=== PATIENT | female | born 1935 | race Caucasian/White ===

== ENCOUNTER 2021-02-13 05:40 | Inpatient (IN) | payer MEDICARE ==
[2021-02-11 14:33] LABS: ALANINE AMINOTRANSFERASE 19 U/L (12-78); ALBUMIN 3.7 g/dL (3.4-5.0); ANION GAP 8 mmol/L (5-15); CALCIUM 9.3 mg/dL (8.5-10.1); CHLORIDE 108 mmol/L (98-107); CREATININE 0.67 mg/dL (0.55-1.02)
[2021-02-11 14:35] LABS: ALKALINE PHOSPHATASE 101 U/L (45-117); BILIRUBIN,TOTAL 0.5 mg/dL (0.2-1.0); TOTAL PROTEIN 7.4 g/dL (6.4-8.2)
[~2021-02-13] VITALS: Ht 157.5 cm; Wt 81.5 kg
[~2021-02-13 05:40] MED LIST: APIX5TAB PO; CRAN1CAP12 PO; D-MA500C PO; DILT60CA PO; L.AC1CAP6 PO; LOSA25TA25 PO; Magnesium PO; OMEP20TA62 PO; PREG75CA PO; TRAM50TA2 PO
[2021-02-13] MEDS ORDERED: CHLORHEXIDINE 15 ML UDC PO ONE (06:30)
[2021-02-13] MEDS: LACTATED RINGERS 1,000 ML IV SCH ×4 (06:48→18:33)
[2021-02-13] MEDS ORDERED: BUPIVACAINE/PF 0.5% ONE (06:51)
[2021-02-13] MEDS ORDERED: EPINEPHRINE 1 MG/ML, 1ML ONE (06:51)
[2021-02-13] MEDS ORDERED: FENTANYL PF 250 MCG/5ML ONE (07:15)
[2021-02-13] MEDS ORDERED: DEXAMETHASONE 4 MG/ML, 1ML ONE (07:31)
[2021-02-13] MEDS ORDERED: EPHEDRINE 50 MG/ML, 1ML ONE (07:31)
[2021-02-13] MEDS ORDERED: BUPIVACAINE/PF-EPI 0.5% 1:200K INFIL ONE (07:46)
[2021-02-13] MEDS ORDERED: HYDROmorphone 1 MG/ML, 1ML INJ IVPush PRN (08:00)
[2021-02-13] MEDS ORDERED: ALBUTEROL SULFATE 2.5 MG/3 ML NPPB PRN (08:00)
[2021-02-13] MEDS ORDERED: LABETALOL 5MG/ML, 20ML IV PRN (08:00)
[2021-02-13] MEDS ORDERED: MEPERIDINE/PF 25MG/0.5ML IVPush PRN (08:00)
[2021-02-13] MEDS ORDERED: OXYcodone 5 MG/5 ML ORAL.SOL UDC PO PRN (08:00)
[2021-02-13] MEDS ORDERED: MIDAZOLAM 1 MG/ML, 2ML IV PRN (08:00)
[2021-02-13] MEDS ORDERED: ACETAMINOPHEN 325 MG TABLET PO PRN (08:00)
[2021-02-13] MEDS ORDERED: PROMETHAZINE 25 MG/ML, 1ML IVPush PRN (08:00)
[2021-02-13] MEDS ORDERED: METHOCARBAMOL 1,000 MG in DEXTROSE 5% 100 ML IV PRN (08:00)
[2021-02-13] MEDS ORDERED: GLYCOPYRROLATE 0.2MG/1ML, 5ML ONE (08:15)
[2021-02-13] MEDS ORDERED: PROPOFOL 10 MG/ML, 20ML ONE (08:15)
[2021-02-13] MEDS ORDERED: ONDANSETRON 2MG/ML, 2ML ONE (08:15)
[2021-02-13] MEDS ORDERED: CEFAZOLIN 1,000 MG ONE (08:15)
[2021-02-13] MEDS ORDERED: NEOSTIGMINE 1 MG/ML, 10ML ONE (08:15)
[2021-02-13] MEDS ORDERED: ROCURONIUM 10MG/ML,5ML ONE (08:15)
[2021-02-13] MEDS ORDERED: LIDOCAINE-MPF 2% ,5ML ONE (08:20)
[2021-02-13] MEDS ORDERED: SUGAMMADEX 200 MG/2 ML IVPush ONE ×2 (08:47)
[2021-02-13] MEDS ORDERED: PROMETHAZINE 25 MG/ML, 1ML IM PRN (09:00)
[2021-02-13] MEDS ORDERED: ENALAPRILAT 1.25 MG/ML, 2ML IV PRN (09:00)
[2021-02-13] MEDS ORDERED: HYDROcodone/APAP 7.5-325MG/15ML UDC PO PRN (09:00)
[2021-02-13] MEDS ORDERED: PROMETHAZINE 12.5 MG SUPP PR PRN (09:00)
[2021-02-13] MEDS ORDERED: hydrALAzine 20 MG/ML, 1ML IV PRN (09:00)
[2021-02-13] MEDS ORDERED: ONDANSETRON 2MG/ML, 2ML IVPush PRN (09:00)
[2021-02-13] MEDS ORDERED: morphine SULFATE 10 MG/ML, 1ML IV PRN (09:00)
[2021-02-13] MEDS ORDERED: FENTANYL PF 100 MCG/2ML ONE ×2 (09:04→11:31)
[2021-02-13] MEDS: FENTANYL PF 100 MCG/2ML IV PRN ×4 (09:10→09:30)
[2021-02-13] MEDS ORDERED: HYDR15SO3 PO (09:30)
[2021-02-13 12:22] LABS: ALBUMIN 3.3 g/dL (3.4-5.0); ANION GAP 6 mmol/L (5-15); CALCIUM 8.4 mg/dL (8.5-10.1); CHLORIDE 110 mmol/L (98-107)
[2021-02-13 12:31] LABS: ALANINE AMINOTRANSFERASE 34 U/L (12-78); ALKALINE PHOSPHATASE 100 U/L (45-117); BILIRUBIN,TOTAL 0.3 mg/dL (0.2-1.0); CREATININE 0.71 mg/dL (0.55-1.02); TOTAL PROTEIN 7.1 g/dL (6.4-8.2); TROPONIN I < 0.015 ng/mL (0.000-0.045)
[2021-02-13 14:00] VITALS: BP 135/79
[2021-02-13] MEDS ORDERED: POTASSIUM CHLORIDE 40 MEQ in SODIUM CHLORIDE 0.9% 500 ML IV ONE (15:00)
[2021-02-13] MEDS: DILTIAZEM 60 MG CAP.ER.12H PO SCH (15:54)
[2021-02-13] MEDS: FAMOTIDINE 20 MG/2 ML IV SCH (15:55)
[2021-02-13] MEDS: PREGABALIN 75 MG CAPSULE PO SCH (15:55)
[2021-02-13 17:43] LABS: BASOPHILS % (AUTO) 0 % (0-1); EOSINOPHILS % (AUTO) 0 % (1-7); LYMPHOCYTES % (AUTO) 3 % (22-44); MEAN CORPUSCULAR HEMOGLOBIN 26.3 pg (27.0-34.8); MEAN CORPUSCULAR HGB CONC 32.5 g/dL (32.4-35.8); MEAN PLATELET VOLUME 7.9 fL (7.4-10.4); MONOCYTES % (AUTO) 2 % (2-9); NEUTROPHILS % (AUTO) 95 % (42-75); PLATELET COUNT 161 x10^3/uL (130-400); RED BLOOD COUNT 4.94 x10^6/uL (3.82-5.3); RED CELL DISTRIBUTION WIDTH 17.2 % (9.6-15.2)
[2021-02-13 17:57] LABS: TROPONIN I < 0.015 ng/mL (0.000-0.045)
[2021-02-13 18:43] VITALS: BP 131/78
[2021-02-13] MEDS ORDERED: NS + 40MEQ KCL 1,000 ML IV SCH (19:00)
[2021-02-14 01:38] VITALS: BP 135/82
[2021-02-14 04:31] VITALS: BP 130/74
[2021-02-14] MEDS: PREGABALIN 75 MG CAPSULE PO SCH ×3 (04:36→20:24)
[2021-02-14] MEDS: DILTIAZEM 60 MG CAP.ER.12H PO SCH ×3 (04:36→20:25)
[2021-02-14] MEDS: FAMOTIDINE 20 MG/2 ML IV SCH (04:38)
[2021-02-14] MEDS: LACTATED RINGERS 1,000 ML IV SCH (05:00)
[2021-02-14 08:19] VITALS: BP 131/73
[2021-02-14] MEDS: LOSARTAN 25MG TABLET PO SCH ×2 (08:21→20:24)
[2021-02-14] MEDS: ENOXAPARIN 40 MG/0.4 ML SQ SCH (08:22)
[2021-02-14] MEDS ORDERED: PREGABALIN 75 MG CAPSULE PO SCH (09:00)
[2021-02-14 10:11] LABS: ANION GAP 4 mmol/L (5-15); CALCIUM 7.9 mg/dL (8.5-10.1); CHLORIDE 111 mmol/L (98-107)
[2021-02-14 10:13] LABS: CREATININE 0.68 mg/dL (0.55-1.02)
[2021-02-14 12:35] VITALS: BP 128/77
[2021-02-14 18:30] VITALS: BP 123/71
[2021-02-14 20:22] VITALS: BP 128/75
[2021-02-15 00:43] VITALS: BP 135/76
[2021-02-15 08:01] VITALS: BP 127/74
[2021-02-15] MEDS: ENOXAPARIN 40 MG/0.4 ML SQ SCH (08:39)
[2021-02-15] MEDS: DILTIAZEM 60 MG CAP.ER.12H PO SCH (08:40)
[2021-02-15] MEDS: PREGABALIN 75 MG CAPSULE PO SCH (08:40)
[2021-02-15] MEDS: LOSARTAN 25MG TABLET PO SCH (08:40)
[2021-02-15] MEDS ORDERED: FAMOTIDINE 20 MG/2 ML IV SCH (09:00)
[2021-02-15 13:55] VITALS: BP 134/79
== END 2021-02-15 18:43 | disposition home or self-care (01) | DRG 327 ==
LOC: OUT 05:40 → ORIP 08:59 → OBSVTOIN 08:59 → 5SO 13:31
PROVIDERS: ADMIT Thoracic Surgery (Cardiothoracic Vascular Surgery); ATTEND Thoracic Surgery (Cardiothoracic Vascular Surgery)
PROC: 0DV44ZZ Restriction of Esophagogastric Junction, Percutaneous Endoscopic Approach (ICD-10-PCS; 2021-02-13)
PROC: 0BUT4JZ Supplement Diaphragm with Synthetic Substitute, Percutaneous Endoscopic Approach (ICD-10-PCS; principal; 2021-02-13 07:30)
DX: K44.9 Diaphragmatic hernia without obstruction or gangrene (principal); I47.2 Ventricular tachycardia; D68.59 Other primary thrombophilia; J98.11 Atelectasis; I48.20 Chronic atrial fibrillation, unspecified; I10 Essential (primary) hypertension; E87.6 Hypokalemia; Z82.5 Family history of asthma and other chronic lower respiratory diseases; K21.9 Gastro-esophageal reflux disease without esophagitis; Z85.3 Personal history of malignant neoplasm of breast; Z90.13 Acquired absence of bilateral breasts and nipples
CPT/HCPCS: 36415; 71045; 80048; 80053; 83735; 84100; 84443; 84484; 85025; 93005; 93306; G0378; J0171; J0690; J1100; J1650; J2405; J2704; J2710; J3010; J3480; C1781; J7040; J7120